=== PATIENT | female | born 1985 | race Caucasian/White ===

== ENCOUNTER → 2018-06-12 | Outpatient (CLI) | payer OTHER ==
[2018-06-12 10:00] LABS: Basophils % (A) 1 %; Eosinophils # (A) 0.1 k/uL (0-0.7); Eosinophils % (A) 2 %; HCT 41.2 % (34.0-46.0); Lymphocytes # (A) 1.6 k/uL (1.0-4.8); Lymphocytes % (A) 34 %; MCH 28.2 pg (25.0-35.0); MCHC 31.4 g/dL (31.0-37.0); MCV 89.8 fL (80.0-100.0); Mean Platelet Volume 7.3; Monocytes # (A) 0.5 k/uL (0-1.0); Monocytes % (A) 10 %; Neutrophils # (A) 2.4 k/uL (1.3-7.7); Neutrophils % (A) 51 %; Platelet Count 204 k/uL (150-450); RBC 4.59 m/uL (3.80-5.40); RDW 12.9 % (11.5-15.5); WBC 4.7 k/uL (3.8-10.6)
== END | disposition home or self-care (01) ==
LOC: LABPAT 09:01
PROVIDERS: ATTEND Obstetrics & Gynecology
DX: Z01.812 Encounter for preprocedural laboratory examination (principal)
CPT/HCPCS: 36415; 85025

== ENCOUNTER 2018-06-15 09:38 | Day surgery (SDC) | payer OTHER ==
[2018-06-10 13:22] VITALS: BMI 24.2
--- NOTE | 2018-06-11 17:45 | HP ---
HISTORY AND PHYSICAL REASON FOR ADMISSION: Date of surgery is 06/15/2018. HISTORY: This is a 33-year-old 2, para 1, 1, 0 2 woman who desires permanent surgical sterility. She has a 6-year-old and a 3-month-old infant. She has been counseled on other methods of contraception and has chosen bilateral tubal ligation. PAST MEDICAL HISTORY: Depression and abnormal Pap smears. PAST SURGICAL HISTORY: section in 2011, laparoscopy 2013 for ovarian cysts. MEDICATIONS: Citalopram 20 mg daily, oral contraceptive pill. ALLERGIES: No known drug allergies. PAST SYSTEM VALIDATION ENGINEER HISTORY: section 2011, vaginal after section 2017. SOCIAL HISTORY: She is . Negative for tobacco, alcohol, and drug use. FAMILY HISTORY: Significant for father with stroke. REVIEW OF SYSTEMS: Complete 12-point review of systems is completed and is negative except for that discussed above. PHYSICAL EXAM: Blood pressure 104/60, height 5 feet 5 inches, weight 143 pounds. In general, this is a pleasant, female in no apparent distress. HEENT exam is unremarkable. LUNGS: Clear to auscultation bilaterally and the heart is of regular rate and rhythm. The abdomen is slim, soft and nontender with scarring consistent with her previous surgical history. On pelvic examination, she has normal female external genitalia without lesions or irritation. On bimanual examination, there are no palpable pelvic masses or abnormalities appreciated. Neurologically, she is grossly intact and the extremities are free of any gross lesions or rashes. ASSESSMENT: 33-year-old 2, para 1, 1, 0 2 woman who desires definitive surgical sterility. She requests bilateral tubal ligation and is scheduled for this procedure with Filshie clips on 06/15/2018. This procedure, anticipated risks and benefits have been reviewed. Risks include, but are not limited to: Bleeding, transfusion, laparotomy, damage to bowel, bladder, ureters and/or other pelvic or abdominal structures. With tubal ligation, there is also a risk of failure and/or ectopic requiring further management and/or surgery. The patient understands these risks. She has been counseled regarding other methods of contraception, specifically hormonal contraception, intrauterine device and/or vasectomy. She has declined these. MMODL / IJN: [id number] /
[~2018-06-15 09:38] MED LIST: DEXAMETHASONE SOD PHOSPHATE 10 MG/ML 1 ML VIAL IV ONE; LACTATED RINGERS 1,000 ML IV SCH; MIDAZOLAM (PF) 2 MG/2 ML VIAL IV PRN; ONDANSETRON 4 MG/2 ML VIAL IVP ONE; Pre Op ABX Message 1 EACH MISC MISCELLANE ONE; SCOPOLAMINE 1.5MG/72HR PATCH TRANSDERM ONE
[2018-06-15 09:55] VITALS: TEMP 97.8
[2018-06-15] MEDS ORDERED: LACTATED RINGERS 1,000 ML IV ONE ×2 (09:58→12:38)
[2018-06-15] MEDS ORDERED: LIDOCAINE 1% 20 ML VIAL (10MG/ML) FOR IV START INTRADERMA ONE (09:59)
[2018-06-15] MEDS ORDERED: LIDOCAINE 1% INJ 10MG/ML (20 ML MDV) ONE (11:13)
[2018-06-15] MEDS ORDERED: ATROPINE SULFATE 0.1 MG/ML 10ML SYRINGE ONE (11:13)
[2018-06-15] MEDS ORDERED: PROPOFOL 10 MG/ML 20 ML VIAL IV ONE (11:13)
[2018-06-15] MEDS ORDERED: ACETAMINOPHEN IV (For NPO) 1,000 MG/100 ML VIAL ONE (11:13)
[2018-06-15] MEDS ORDERED: MIDAZOLAM 2 MG/2 ML VIAL ONE (11:13)
[2018-06-15] MEDS ORDERED: fentaNYL (PF) 50 MCG/ML 2 ML AMP ONE (11:13)
[2018-06-15] MEDS ORDERED: SUCCINYLCHOLINE CHLORIDE 100 MG/5 ML SYR IV ONE (11:13)
[2018-06-15] MEDS ORDERED: ROPIVACAINE 5 MG/ML 30 ML VIAL MISCELLANE ONE ×2 (11:32)
--- NOTE | 2018-06-15 11:53 | P.OP ---
Date of Procedure: 06/15/18 Preoperative Diagnosis: Undesired fertility Postoperative Diagnosis: Same Procedure(s) Performed: Laparoscopic bilateral tubal occlusion Anesthesia: PARKER Surgeon: Quynh Michel Estimated Blood Loss (ml): 1 IV fluids (ml): 400 Urine output (ml): 300 Pathology: none sent Condition: stable Disposition: PACU Operative Findings: Normal appearing uterus, bilateral fallopian tubes and ovaries. Description of Procedure: After the patient was met in the preoperative holding area and she voiced her strong desire for tubal ligation, she was taken the operating room where anesthetic was administered without incident. She was positioned, prepped and draped in the dorsal lithotomy position. Bladder was drained for approximately 300 mL of clear urine. Speculum was placed in the vagina and the acorn uterine manipulator was placed. Gloves were changed and attention was turned to the abdomen. 5 mm infraumbilical skin incision was made. The anterior abdominal wall was elevated and the varies needle was inserted without difficulty. Saline drop test indicated intraperitoneal placement. Initial filling pressure with CO2 gas was 0. Abdomen was then insufflated to a total filling pressure of 15 mm. Under direct visualization using the optical trocar the 5 mm scope was placed. The patient was placed in Trendelenburg. Under direct visualization the 8 mm suprapubic port was placed. Of note she did have some scarring in the pelvis consistent with the previous section. The bladder was scarred more anterior than typical products under direct visualization a suprapubic port was placed above this. The blunt probe. was then used to sweep bowel out of the pelvis. The Filshie clip repair was then introduced. The course of the right fallopian tube was completely visualized. Filshie clip was placed in the mid ampullary portion of the tube completely transecting the tube. Clip etcher machine was reloaded and similarly the left fallopian tube was identified all the way up to the fimbriated end. Clip was applied in the mid ampullary portion completely transecting the tube as well. Instruments were then removed under direct visualization. The abdomen was desufflated of CO2 gas. Trochars were removed. Skin was closed using 4-0 Vicryl suture in a subcuticular fashion. The half percent ropivacaine was then infused in each of the incisions approximately 4 mL each. Dressing was applied. Instruments removed from the vagina. Patient was awoken from anesthetic and transported recovery area in stable condition. All counts reported to sd as correct by the operating staff.
[2018-06-15] MEDS: HYDROmorphone 1 MG/ML 1 ML SYRINGE IVP PRN ×2 (12:24→12:29)
[2018-06-15 12:49] VITALS: RESP 18
[2018-06-15 13:37] VITALS: BP 135/84; PULSE 99
== END 2018-06-15 13:50 | disposition home or self-care (01) ==
LOC: OR 09:38
PROVIDERS: ATTEND Obstetrics & Gynecology
DX: Z30.2 Encounter for sterilization (principal); F32.9 Major depressive disorder, single episode, unspecified; Z79.3 Long term (current) use of hormonal contraceptives; Z79.899 Other long term (current) drug therapy
CPT/HCPCS: 81025; 58671; J2250; J1100; J2405; J2001; J0461; J3010; J1170; J2795; J0131; J0330; J2704

== ENCOUNTER → 2021-09-06 | Outpatient (CLI) | payer OTHER ==
[2021-09-06 11:09] LABS: INR 0.9 (<1.2); Partial Thromboplastin Time 24.2 sec (22.0-30.0); Prothrombin Time 10.2 sec (9.0-12.0)
[2021-09-06 15:05] LABS: Basophils # (A) 0.04 X 10*3/uL (0.00-0.10); Basophils % (A) 0.7 %; Eosinophils # (A) 0.12 X 10*3/uL (0.04-0.35); Eosinophils % (A) 2.1 %; HGB 12.8 g/dL (12.0-15.0); Immature Grans, Automated 0.2 %; Lymphocytes # (A) 1.43 X 10*3/uL (0.90-5.00); Lymphocytes % (A) 25.6 %; MCH 29.4 pg (27.0-32.0); Mean Platelet Volume 11.4 fL (9.5-12.2); Monocytes # (A) 0.64 X 10*3/uL (0.20-1.00); Monocytes % (A) 11.4 %; NRBC Per 100 WBC 0 /100 WBCS (0.0-0.0); Neutrophils # (A) 3.35 X 10*3/uL (1.80-7.70); Platelet Count 228 X 10*3/uL (140-440); RBC 4.35 X 10*6/uL (4.10-5.20); RDW 12.5 % (11.5-14.5); WBC 5.59 X 10*3/uL (4.50-10.00)
[2021-09-06 16:01] LABS: African American GFR (CKD) 89.7 (60.0-200.0); Anion Gap 12.1 mmol/L (10.00-18.00); BUN/Creat Ratio 16.6 Ratio (12.00-20.00); Blood Urea Nitrogen 15.8 mg/dL (9.0-27.0); Calcium 9.1 mg/dL (8.7-10.3); Carbon Dioxide 21.9 mmol/L (20.0-27.5); Non-African American GFR(CKD) 77.4 (60.0-200.0); Potassium 4.1 mmol/L (3.5-5.5)
== END | disposition home or self-care (01) ==
LOC: LABWHC1 10:10
PROVIDERS: ATTEND Internal Medicine
DX: Z01.812 Encounter for preprocedural laboratory examination (principal)
CPT/HCPCS: 36415; 80048; 85025; 85610; 85730